=== PATIENT | male | born 1975 | race Caucasian/White ===

== ENCOUNTER 2021-08-13 21:10 | Emergency (ER) | payer MEDICAID ==
[~2021-08-13] VITALS: Ht 180.3 cm; Wt 113.4 kg
--- NOTE | 2021-08-13 21:20 | NUR ---
Dr. Wren at bedside for MSE.
[2021-08-13] MEDS ORDERED: ASPIRIN 325 MG TABLET PO ONE (21:45)
--- NOTE | 2021-08-13 21:50 | NUR ---
Xray at bedside.
--- NOTE | 2021-08-13 21:50 | NUR ---
Unable to start IV, made aware. Pt states hx of IV drug use over 10 years ago.
[2021-08-13] MEDS ORDERED: ASPIRIN 325 MG TABLET ONE (21:52)
--- NOTE | 2021-08-13 22:10 | NUR ---
Patient does not wish to proceed with medical care recommended by Dr. Wren. Patient given information related to possible complications, up to and including , which could occur as a result of leaving the hospital at this time. Patient verbalizes understanding of risks involved due to leaving against medical advice. Patient has signed AMA form.
[2021-08-13 22:11] VITALS: BP 123/82
== END 2021-08-13 22:11 | disposition left against medical advice (07) ==
LOC: ER 21:17
DX: R07.9 Chest pain, unspecified (principal); R06.02 Shortness of breath; I45.2 Bifascicular block; Z53.29 Procedure and treatment not carried out because of patient's decision for other reasons
CPT/HCPCS: 71045; 93005; A4663

== ENCOUNTER 2021-10-21 12:16 | Emergency (ER) | payer MEDICAID ==
[~2021-10-21] VITALS: Ht 180.3 cm; Wt 113.4 kg
[2021-10-21] MEDS ORDERED: ASPIRIN 81 MG TAB.CHEW PO ONE (12:45)
[2021-10-21] MEDS ORDERED: ASPIRIN 81 MG TAB.CHEW ONE (13:08)
[2021-10-21 13:10] LABS: HEMATOCRIT 37.7 % (36.7-47.1); MEAN CORPUSCULAR HEMOGLOBIN 28.9 uug (23.8-33.4); MEAN CORPUSCULAR VOLUME 86.4 fL (73.0-96.2); PLATELET COUNT (AUTO) 252 K/uL (152-348)
[2021-10-21 13:19] LABS: CREATININE 1.2 mg/dL (0.6-1.3); POTASSIUM 3.6 mmol/L (3.5-5.1)
[2021-10-21 13:31] LABS: BILIRUBIN,TOTAL 0.3 mg/dL (0.2-1.0)
--- NOTE | 2021-10-21 13:52 | NUR ---
PT IS IN ROOM #2A. DR MALHOTRA EVALUATED THE PT.
[2021-10-21] MEDS ORDERED: NITROGLYCERIN 0.4 MG/TAB BOTTLE SL ONE (14:00)
--- NOTE | 2021-10-21 14:15 | NUR ---
Patient states chest pain is mild right now and did not want to take the nitro. Dr tijerina notified
[2021-10-21] MEDS ORDERED: IV NORMAL SALINE 250 ML IV ONE (14:38)
[2021-10-21] MEDS ORDERED: IOHEXOL 350 100 ML INFUS..BTL ONE (14:38)
[2021-10-21] MEDS ORDERED: SWABABLE VALVE TRANSFER SET EA MC ONE (14:38)
[2021-10-21] MEDS ORDERED: ESMOLOL HCL 100 MG/10 ML VIAL IV ONE (14:45)
[2021-10-21] MEDS ORDERED: ESMOLOL 2.5 GM/NS 250 ML DRIP 250 ML IV PRN (14:45)
--- NOTE | 2021-10-21 15:08 | NUR ---
PT DENIES CHEST PAIN AT THIS TIME. NO S/S OF ACUTE DISTRESS. CONTINUE TO MONITOR THE PT.
--- NOTE | 2021-10-21 16:44 | NUR ---
PT DECIDED TO LEAVE HOSPITAL AMA. DR MALHOTRA EXPLAINED ALL RISKS OF LEAVING HOSPITAL AMA TO THE PT AND TO HIS MOTHER. PT WERBALIZED FULL UNDERSTANDING OF DR MALHOTRA EXPLANATIONS. PT SIGNED AMA FORM AND LEFT HOSPITAL ER WITH HIS MOTHER BY CAR. NO S/S OF DISTRESS AT HE TIME OF DISCHARGE.
[2021-10-21 16:53] VITALS: BP 128/71
== END 2021-10-21 16:54 | disposition left against medical advice (07) ==
LOC: ER 12:16
DX: R07.9 Chest pain, unspecified (principal); M79.89 Other specified soft tissue disorders; F17.200 Nicotine dependence, unspecified, uncomplicated; Z28.310 Unvaccinated for COVID-19; E66.9 Obesity, unspecified; Z68.34 Body mass index [BMI] 34.0-34.9, adult; Z20.822 Contact with and (suspected) exposure to COVID-19; Z88.0 Allergy status to penicillin
CPT/HCPCS: 36415; 71045; 84484; 85025; 85610; 93005; A4663; Q9967